=== PATIENT | female | born 1955 | race Caucasian/White ===

== ENCOUNTER 2020-02-02 11:46 | Day surgery (SDC) | payer OTHER ==
[~2020-02-02] VITALS: Ht 162.6 cm; Wt 91.5 kg
[~2020-02-02 11:46] MED LIST: AMOX50 PO; AMOX500 PO; ASCO500; AZIT250 PO; CALCIUM CIT 311 EACH PO; CELE200 PO; CEPH500 PO; CONEST1.25; ESTR.625; FURO20 PO; FURO40 PO; FURO80 PO; GABA300; HYDCOR2.5C; HYDHCL25 PO; K-Dur20 MEQ PO; LORA10ER PO; METH10; METH40; METH5; METPRE4DP PO; MULTIPLE VITAM1 EACH PO; MULVITA; NITROLINGUAL12 GM; Neurontin600 MG PO; OMEGA-3 FISH O1 EAC6 PO; OXYACE5T PO; OXYC5; POTCHL20ER PO; PRED10 PO; PRED20 PO; PYRI100; RANI150 PO; RXHYDACE PO; SULTRIDS PO; TOPICAINE 5113 GM; TOPROL XL50 M1 PO; TRAM50 PO; TRIA15CR3; VOLTAREN ARTHRI20 GM; Ventolin/Prove6.7 GM INH; Vitamin B Comple1 EA PO
[2020-02-02] MEDS ORDERED: MORP15ER PO (12:07)
== END 2020-02-02 13:30 | disposition home or self-care (01) ==
LOC: ORSCSDS 11:46
PROVIDERS: Internal Medicine Gastroenterology
PROC: 0DBE8ZX Excision of Large Intestine, Via Natural or Artificial Opening Endoscopic, Diagnostic (ICD-10-PCS; principal; 2020-02-02 13:00)
PROC: 0DBH8ZX Excision of Cecum, Via Natural or Artificial Opening Endoscopic, Diagnostic (ICD-10-PCS; principal; 2020-02-02 13:00)
DX: K62.5 Hemorrhage of anus and rectum (principal); R10.12 Left upper quadrant pain; D12.0 Benign neoplasm of cecum; K64.1 Second degree hemorrhoids; Z87.891 Personal history of nicotine dependence; J43.9 Emphysema, unspecified; G62.9 Polyneuropathy, unspecified; E66.9 Obesity, unspecified; Z68.34 Body mass index [BMI] 34.0-34.9, adult; Z79.899 Other long term (current) drug therapy
CPT/HCPCS: 88305; J2704; J7120

== ENCOUNTER 2021-05-14 18:05 | Emergency (ER) | payer OTHER ==
[~2021-05-14] VITALS: Ht 162.6 cm; Wt 90.7 kg
[~2021-05-14 18:05] MED LIST changes: +MORP15ER PO
== END 2021-05-14 20:11 | disposition home or self-care (01) ==
LOC: ER 18:05
DX: M17.11 Unilateral primary osteoarthritis, right knee (principal); M86.9 Osteomyelitis, unspecified; Z79.899 Other long term (current) drug therapy; Z88.8 Allergy status to other drugs, medicaments and biological substances; Z88.6 Allergy status to analgesic agent; Z79.891 Long term (current) use of opiate analgesic; Z87.891 Personal history of nicotine dependence
CPT/HCPCS: 73562-RT; 93971; 99284-25

== ENCOUNTER → 2021-07-01 | Outpatient (CLI) | payer OTHER | END | disposition home or self-care (01) | LOC: LAB 14:40 → LAB SHORT 14:40 | DX: L50.9 Urticaria, unspecified (principal); L08.9 Local infection of the skin and subcutaneous tissue, unspecified | CPT/HCPCS: 87070; 87205 ==

== ENCOUNTER 2024-01-22 06:09 | Day surgery (SDC) | payer OTHER ==
[~2024-01-22] VITALS: Ht 160 cm; Wt 100.4 kg
[~2024-01-22 06:09] MED LIST changes: +ATOR40TA PO; +Balanced Salt Epinephrine Irrigation Solution 500 mL IR SCH; +ELIQUIS2.5 MG PO; +KETAMINE; +LOSA50 PO; +Lidocaine HCl/Pf 1% 5 ML VIAL XX SCH; +Moxifloxacin HCL 0.5 MG/0.1 ML 0.4MLSYR RIGHTEYE SCH; +PHENYLEPHRINE\\TROPICAMIDE\\TETRACAINE OPHTHALMIC DILATING SOLN RIGHTEYE PRN; +Povidone-Iodine 450 DROP/30 ML Solution ONE; +Povidone-Iodine 450 DROP/30 ML Solution RIGHTEYE SCH; +TORSE20 PO; +Tetracaine HCl/Pf 0.5% Opth Soln 4 ml ONE
[2024-01-22] MEDS ORDERED: Lidocaine HCl/Pf 1% 5 ML VIAL ONE (06:55)
[2024-01-22] MEDS ORDERED: Midazolam HCl 1MG / ML 2ML Vial ONE (07:22)
[2024-01-22] MEDS ORDERED: FentaNYL Citrate 50 MCG/ML 2 ML Injection ONE (07:22)
[2024-01-22 07:56] VITALS: BP 114/55
== END 2024-01-22 08:12 | disposition home or self-care (01) ==
LOC: ORSCSDS 06:09
PROVIDERS: Student in an Organized Health Care Education/Training Program
PROC: 08RJ3JZ Replacement of Right Lens with Synthetic Substitute, Percutaneous Approach (ICD-10-PCS; principal; 2024-01-22 07:30)
DX: H25.813 Combined forms of age-related cataract, bilateral (principal); I10 Essential (primary) hypertension; Z87.891 Personal history of nicotine dependence; Z79.899 Other long term (current) drug therapy
CPT/HCPCS: J2003; J2250; J3010; V2632

== ENCOUNTER 2024-01-29 06:39 | Day surgery (SDC) | payer OTHER ==
[~2024-01-29] VITALS: Ht 160 cm; Wt 100.4 kg
[~2024-01-29 06:39] MED LIST changes: +Moxifloxacin HCL 0.5 MG/0.1 ML 0.4MLSYR LEFTEYE SCH; -Moxifloxacin HCL 0.5 MG/0.1 ML 0.4MLSYR RIGHTEYE SCH; +PHENYLEPHRINE\\TROPICAMIDE\\TETRACAINE OPHTHALMIC DILATING SOLN LEFTEYE PRN; -PHENYLEPHRINE\\TROPICAMIDE\\TETRACAINE OPHTHALMIC DILATING SOLN RIGHTEYE PRN; +Povidone-Iodine 450 DROP/30 ML Solution LEFTEYE SCH; -Povidone-Iodine 450 DROP/30 ML Solution RIGHTEYE SCH
[2024-01-29] MEDS ORDERED: Lidocaine HCl/Pf 1% 5 ML VIAL ONE (06:58)
[2024-01-29] MEDS ORDERED: Tetracaine HCl 0.5% Opth Soln 15 ml LEFTEYE ONE (07:52)
[2024-01-29 08:13] VITALS: BP 107/87
== END 2024-01-29 08:26 | disposition home or self-care (01) ==
LOC: ORSCSDS 06:39
PROVIDERS: Student in an Organized Health Care Education/Training Program
PROC: 08RK3JZ Replacement of Left Lens with Synthetic Substitute, Percutaneous Approach (ICD-10-PCS; principal; 2024-01-29 08:00)
DX: H25.812 Combined forms of age-related cataract, left eye (principal); Z96.1 Presence of intraocular lens; E78.5 Hyperlipidemia, unspecified; I10 Essential (primary) hypertension; Z87.891 Personal history of nicotine dependence; E66.01 Morbid (severe) obesity due to excess calories; Z68.38 Body mass index [BMI] 38.0-38.9, adult; Z79.899 Other long term (current) drug therapy
CPT/HCPCS: J2003; V2632